=== PATIENT | female | born 1995 | race Caucasian/White ===

== ENCOUNTER 2020-10-23 11:00 | Emergency (ER) | payer MEDICAID ==
[~2020-10-23] VITALS: Ht 165.1 cm; Wt 60.0 kg
[2020-10-23 11:13] VITALS: TEMP 98.1
[2020-10-23 12:27] VITALS: BP 115/71; PULSE 64
== END 2020-10-23 12:29 | disposition home or self-care (01) ==
LOC: COL.ER 11:00
DX: R51.9 Headache, unspecified (principal); Z20.822 Contact with and (suspected) exposure to COVID-19

== ENCOUNTER → 2021-11-05 | Outpatient (CLI) | payer MEDICAID ==
[~2021-11-05] MED LIST: ZOLOFT 100MG100 MG PO
== END ==
LOC: ZCOL.LAB 15:25
DX: Z20.822 Contact with and (suspected) exposure to COVID-19 (principal)